=== PATIENT | male | born 1975 | race Two or more races ===

== ENCOUNTER 2021-02-03 09:18 | Emergency (ER) | payer BC ==
[~2021-02-03] VITALS: Ht 180.3 cm; Wt 92.0 kg
[2021-02-03 11:07] LABS: CALCIUM 8.8 mg/dL (8.5-10.1); CREATININE 0.7 mg/dL (0.7-1.3); GFR 123.1; POTASSIUM 3.8 mmol/L (3.5-5.1)
[2021-02-03 11:28] LABS: BILIRUBIN,URINE NEGATIVE (NEG); CLARITY,URINE CLEAR; COLOR,URINE YELLOW; NITRITE,URINE NEGATIVE (NEG); PH,URINE 5.5 (<5.0-8.0); PROTEIN,URINE NEGATIVE (NEG-TRACE)
[2021-02-03 11:52] LABS: BACTERIA,URINE 0 /HPF (0-FEW); RBC,URINE 0 /HPF (0-2); WBC,URINE OCC /HPF (0-4)
--- NOTE | 2021-02-03 12:08 | ED.ADGEN ---
Past Medical History Past Medical History: Diabetes-Type II Past Surgical History: Other Additional Past Surgical Histo: KNEE Smoking Status: Never Smoker Alcohol Use: None General Adult EDM: Chief Complaint: DIARRHEA HPI: HPI: Patient is a 45-year-old male who presents to the emergency room complaining of intermittent diarrhea for the last 4 days. He has taken some Pepto-Bismol which helped him 4 days ago. He then tried to take admixture of lemon juice and baking soda today which made his belly rumble. He has not had any nausea or vomiting. She does not have any abdominal pain. He did have to call into work today due to diarrhea. There is no blood in his stools. Review of Systems: Review of Systems: Complete ROS is negative unless otherwise documented in HPI Allergies: Allergies: Allergies Coded Allergies Type Severity Reaction Last Updated Verified No Known Drug Allergies 02/03/21 No Physical Exam: PE: General: Awake, alert, NAD. Well Nourished, well hydrated. Cooperative HEENT: Atraumatic, EOMI, PERRL, airway patent, moist oral mucosa Neck: Supple, trachea midline Respiratory: CTA bilaterally, normal effort, no wheezing/crackles CV: RRR, no murmur, cap refill <2 GI: Soft, nondistended, nontender, no masses MSK: No obvious deformities Skin: Warm, dry, intact Neuro: A&O x3, speech NL, sensory and motor grossly intact, no focal deficits Psych: Normal affect, normal mood, not suicidal or homicidal Current Patient Data: Labs: Laboratory Tests Test 02/03/21 10:44 02/03/21 10:56 Sodium Level 142 mmol/L (136-145) Potassium Level 3.8 mmol/L (3.5-5.1) Chloride Level 105 mmol/L (98-107) Carbon Dioxide Level 28 mmol/L (21-32) Anion Gap 9 (6-14) Blood Urea Nitrogen 11 mg/dL (8-26) Creatinine 0.7 mg/dL (0.7-1.3) Estimated GFR (Cockcroft-Gault) 123.1 Glucose Level 67 mg/dL (70-99) L Calcium Level 8.8 mg/dL (8.5-10.1) Urine Collection Type Void Urine Color Yellow Urine Clarity Clear Urine pH 5.5 (<5.0-8.0) Urine Specific [place] 1.020 (1.000-1.030) Urine Protein Negative mg/dL (NEG-TRACE) Urine Glucose (UA) Negative mg/dL (NEG) Urine Ketones (Stick) Negative mg/dL (NEG) Urine Blood Negative (NEG) Urine Nitrite Negative (NEG) Urine Bilirubin Negative (NEG) Urine Urobilinogen Dipstick 1.0 mg/dL (0.2 mg/dL) Urine Leukocyte Esterase Negative (NEG) Urine RBC 0 /HPF (0-2) Urine WBC Occ /HPF (0-4) Urine Squamous Epithelial Cells Occ /LPF Urine Bacteria 0 /HPF (0-FEW) Urine Mucus Mod /LPF Laboratory Tests 02/03/21 10:44 Vital Signs: Vital Signs Date Time Temp Pulse Resp B/P (MAP) Pulse Ox O2 Delivery O2 Flow Rate FiO2 02/03/21 09:25 97.8 75 16 124/76 (92) 99 Room Air 97.8 EKG: EKG: [] Heart Score: C/O Chest Pain: N/A Risk Factors: Risk Factors: DM, Current or recent (<one month) smoker, HTN, HLP, family history of CAD, obesity. Risk Scores: Score 0 - 3: 2.5% MACE over next 6 weeks - Discharge Home Score 4 - 6: 20.3% MACE over next 6 weeks - Admit for Clinical Observation Score 7 - 10: 72.7% MACE over next 6 weeks - Early Invasive Strategies Radiology/Procedures: Radiology/Procedures: [] Course & Med Decision Making: Course & Med Decision Making Pertinent Labs and Imaging studies reviewed. (See chart for details) Patient is a 45-year-old male who presents to the emergency room complaining of intermittent diarrhea. Patient is well-appearing. Abdomen is soft and nontender. BMP does not show electrolyte abnormalities. Patient's test results and vitals while in the ED were fully reviewed and discussed with the patient. Patient is stable and at this time does not need admission to the hospital. We have discussed strict return precautions and the importance of following up with their Primary Care Physician. Patient stated understanding and was given an opportunity to ask any questions. Patient is in agreement with plan. Dragon Disclaimer: Dragpuneet Disclaimer: This electronic medical record was generated, in whole or in part, using a voice recognition dictation system. Departure Departure Impression: Primary Impression: Diarrhea Disposition: 01 DC HOME SELF CARE/HOMELESS Condition: STABLE Referrals: TRACY CHILDS MD (PCP) Patient Instructions: Diarrhea, Form - Excuse from Work, School, or Physical Activity MICHAEL ZURITA MD Feb 03, 2021 12:08
[2021-02-03 12:15] VITALS: BP 127/73
== END 2021-02-03 12:20 | disposition home or self-care (01) ==
LOC: ER 09:18
DX: R19.7 Diarrhea, unspecified (principal); E11.9 Type 2 diabetes mellitus without complications; Z98.890 Other specified postprocedural states
CPT/HCPCS: 36415; 80048; 81001; 99285

== ENCOUNTER 2022-03-23 06:55 | Emergency (ER) | payer BC ==
[~2022-03-23] VITALS: Ht 180.3 cm; Wt 94.4 kg
[2022-03-23] MEDS ORDERED: KETOROLAC 15 MG/ML VIAL. IM ONE (07:15)
--- NOTE | 2022-03-23 08:17 | RAD ---
INDICATION: Reason: pain of the spine/ Spl. Instructions: / History: COMPARISON: None. IMPRESSION: Lumbar spine: 3 views obtained. Mild degenerative changes of the lumbar spine with early osteophyte f ormation at vertebral body endplates as well as mild facet hypertrophy. Possible pars defect at L3. N o definite acute fracture. No evidence of dislocation. At the partially visualized abdomen there are some scattered air-filled mildly prominent loops of bowel. Electronically signed by: Nitish Barbosa MD (03/23/2022 8:14 AM) [id number]
[2022-03-23] MEDS ORDERED: MELO7.5T5 PO (08:36)
[2022-03-23] MEDS ORDERED: METH-561 PO (08:36)
[2022-03-23] MEDS ORDERED: HYDROmorphone 2 MG/ML INJ. IM ONE (08:45)
[2022-03-23 10:15] VITALS: BP 138/66
--- NOTE | 2022-03-23 10:17 | PHYS DOC ---
Past Medical History Past Medical History: Diabetes-Type II Additional Past Medical Histor: PERIPHERAL NEUROPATHY, HIATAL HERNIA Past Surgical History: Other Additional Past Surgical Histo: RIGHT KNEE MENISCUS REPAIR, HERNIA REPAIR Smoking Status: Never Smoker Alcohol Use: None General Adult EDM: Chief Complaint: BACK PAIN OR INJURY HPI: HPI: Patient is a 46 year old male who presents with right low back pain, patient states that he has had back pain for several weeks now, today he woke up and bent over in his right lower back started hurting, patient states that he heard a pop. Patient states that he has no other symptoms, he states it is difficult to walk. He is otherwise healthy and has no other complaints, the tenderness is about 1 cm x 1 cm and point tenderness localized to the right lower back not over any bony process. Review of Systems: Review of Systems: Constitutional: Denies fever or chills. [] Eyes: Denies change in visual acuity. [] HENT: Denies nasal congestion or sore throat. [] Respiratory: Denies cough or shortness of breath. [] Cardiovascular: Denies chest pain or edema. [] GI: Denies abdominal pain, nausea, vomiting, bloody stools or diarrhea. [] : Denies dysuria. [] Musculoskeletal: Positive right lower back pain. [] Integument: Denies rash. [] Neurologic: Denies headache, focal weakness or sensory changes. [] Endocrine: Denies polyuria or polydipsia. [] Lymphatic: Denies swollen glands. [] Psychiatric: Denies depression or anxiety. [] Heart Score: C/O Chest Pain: No Risk Factors: Risk Factors: DM, Current or recent (<one month) smoker, HTN, HLP, family history of CAD, obesity. Risk Scores: Score 0 - 3: 2.5% MACE over next 6 weeks - Discharge Home Score 4 - 6: 20.3% MACE over next 6 weeks - Admit for Clinical Observation Score 7 - 10: 72.7% MACE over next 6 weeks - Early Invasive Strategies Current Medications: Current Medications Medications (Trade) Dose Ordered Sig/Carlos Start Time Stop Time Status Last Admin Dose Admin Hydromorphone HCl (Dilaudid) 1 mg 1X ONCE 03/23/22 08:45 03/23/22 08:46 DC Ketorolac Tromethamine (Toradol 15mg Vial) 15 mg 1X ONCE 03/23/22 07:15 03/23/22 07:16 DC 03/23/22 07:49 15 MG Allergies: Allergies: Allergies Coded Allergies Type Severity Reaction Last Updated Verified No Known Drug Allergies 02/03/21 No Physical Exam: PE: Constitutional: Well developed, well nourished, no acute distress, non-toxic appearance. [] HENT: Normocephalic, atraumatic, bilateral external ears normal, oropharynx moist, no oral exudates, nose normal. [] Eyes: PERRLA, EOMI, conjunctiva normal, no discharge. [] Neck: Normal range of motion, no tenderness, supple, no stridor. [] Cardiovascular:Heart rate regular rhythm, no murmur [] Lungs & Thorax: Bilateral breath sounds clear to auscultation [] Abdomen: Bowel sounds normal, soft, no tenderness, no masses, no pulsatile masses. [] Skin: Warm, dry, no erythema, no rash. [] Back: Point tenderness in right lower back around erector spinae muscles, normal range of motion, no sciatica, straight leg raise normal. [] Extremities: No tenderness, no cyanosis, no clubbing, ROM intact, no edema. [] Neurologic: Alert and oriented X 3, normal motor function, normal sensory function, no focal deficits noted. [] Psychologic: Affect normal, judgement normal, mood normal. [] Current Patient Data: Vital Signs: Vital Signs Date Time Temp Pulse Resp B/P (MAP) Pulse Ox O2 Delivery O2 Flow Rate FiO2 03/23/22 07:13 98.3 81 16 147/95 (112) 100 Room Air 98.3 EKG: EKG: Normal sinus rhythm Radiology/Procedures: Radiology/Procedures: No acute, mild degenerative changes of the lumbar spine with early osteophyte formation of the vertebral body endplates as well as mild facet hypertrophy. [] Impression: Right low back pain Course & Med Decision Making: Course & Med Decision Making Pertinent Labs and Imaging studies reviewed. (See chart for details) 46-year-old male seen and examined by myself, right low back pain. The history seems very consistent with musculoskeletal pain. Patient was given 50 mg of Toradol which helped, patient requested more pain medication. X-rays showed degenerative changes. Patient was given 1 mg of Dilaudid. Patient felt much better after that medication was administered. Patient states that he will follow-up with his primary care physician, I recommended he may need to see physical therapy. Patient has no other symptoms, patient essentially asymptomatic on discharge. Patient agrees with the plan of action, states that he will follow-up with primary care physician. Hemodynamically stable discharge, all questions answered, ER precautions given. Marian Disclaimer: Dragpuneet Disclaimer: This electronic medical record was generated, in whole or in part, using a voice recognition dictation system. Departure Departure Impression: Primary Impression: Lumbar strain Disposition: HOME / SELF CARE / HOMELESS Condition: GOOD Patient Instructions: Back Pain, Adult, [id number] Additional Instructions: Follow-up with your primary care physician in 1 to 2 weeks You can use the medication that I have prescribed for you for back pain You may need to go to physical therapy to help decrease back pain Return to the emergency department if you are having any new or severe symptoms Scripts Methocarbamol (METHOCARBAMOL) 500 Mg Tablet 500 MG PO QHS for 14 Days, #14 TAB Prov: ERIC ACUNA MD 03/23/22 Meloxicam (MOBIC) 7.5 Mg Tablet 7.5 MG PO DAILY for 28 Days, #28 TAB Prov: ERIC ACUNA MD 03/23/22 ERIC ACUNA MD March 23, 2022 10:17
--- NOTE | 2022-03-24 07:46 | EKG ---
[address] [place] [id number] Test Date: 2022-03-23 Test Time: 07:18:28 Pat Name: KENNEDY QUIROZ Department: Room: Gender: M [employer] Information [employer]: : [id number] Requested By: ERIC Haddad Number: [id number] Reading MD: Karthik Gordon Measurements Intervals Deane Rate: 79 P: 24 CO: 188 QRS: -17 QRSD: 90 T: 8 QT: 368 QTc: 423 Interpretive Statements SINUS RHYTHM LEFTWARD AXIS Electronically Signed On 03-27-2022 10:53:08 CDT by Karthik Gordon
== END 2022-03-23 10:16 | disposition home or self-care (01) ==
LOC: ER 06:55
DX: S39.012A Strain of muscle, fascia and tendon of lower back, initial encounter (principal); E11.42 Type 2 diabetes mellitus with diabetic polyneuropathy; X50.9XXA Other and unspecified overexertion or strenuous movements or postures, initial encounter; Y93.89 Activity, other specified; Y92.89 Other specified places as the place of occurrence of the external cause; Y99.8 Other external cause status
CPT/HCPCS: 72100; 93005; 96372; 99284; J1170; J1885